=== PATIENT | female | born 1960 | race Caucasian/White ===

== ENCOUNTER 2025-02-14 13:42 | Outpatient (CLI) | payer OTHER | END 2025-02-14 13:43 | disposition home or self-care (01) | LOC: ULT 13:42 | PROVIDERS: ATTEND Nurse Practitioner Family | DX: N95.0 Postmenopausal bleeding (principal); R93.89 Abnormal findings on diagnostic imaging of other specified body structures | CPT/HCPCS: 76856 ==

== ENCOUNTER 2025-03-21 10:51 | Outpatient (CLI) | payer OTHER ==
[2025-03-21 12:00] LABS: Estimated GFR - POC 56.0
== END 2025-03-21 10:52 | disposition home or self-care (01) ==
LOC: SCSMRI 10:51
PROVIDERS: ATTEND Nurse Practitioner Family
DX: N95.0 Postmenopausal bleeding (principal); R93.89 Abnormal findings on diagnostic imaging of other specified body structures
CPT/HCPCS: 36415; 72197; 82565